=== PATIENT | male | born 1985 | race Caucasian/White ===

== ENCOUNTER 2023-11-23 09:51 | Emergency (ER) | payer BC ==
[2023-11-23] MEDS: Lidocaine 1% with EPINEPHrine 1:100,000 50 ML MDV SUBCUT STA (11:21)
[2023-11-23] MEDS: Bacitracin Oint 1 GM U/D Packet TOP ONE (11:21)
== END 2023-11-23 12:07 | disposition home or self-care (01) ==
LOC: JP.ED 09:51
DX: S71.112A Laceration without foreign body, left thigh, initial encounter (principal); Z88.0 Allergy status to penicillin; Z88.8 Allergy status to other drugs, medicaments and biological substances; X58.XXXA Exposure to other specified factors, initial encounter; Y99.0 Civilian activity done for income or pay; Y92.89 Other specified places as the place of occurrence of the external cause
CPT/HCPCS: 12002; 99282

== ENCOUNTER 2023-12-13 13:11 | Emergency (ER) | payer BC | END 2023-12-13 14:23 | disposition home or self-care (01) | LOC: JP.ED 13:11 | DX: S56.911A Strain of unspecified muscles, fascia and tendons at forearm level, right arm, initial encounter (principal); Z88.1 Allergy status to other antibiotic agents; Z88.2 Allergy status to sulfonamides; X58.XXXA Exposure to other specified factors, initial encounter | CPT/HCPCS: 73090-26-RT; 73090-RT; 99283 ==

== ENCOUNTER 2025-02-10 23:15 | Emergency (ER) | payer BC ==
[2025-02-10] MEDS: Diphtheria,Pertussis(Acell),Tetanus Vaccine 0.5 ML Syringe IM ONE (23:49)
[2025-02-11] MEDS: Bacitracin Oint 1 GM U/D Packet TOP ONE (00:10)
[2025-02-11] MEDS: Lidocaine 1% with EPINEPHrine 1:100,000 20 ML MDV INJECT ONE (00:10)
== END 2025-02-11 01:18 | disposition home or self-care (01) ==
LOC: JP.ED 23:15
DX: S61.212A Laceration without foreign body of right middle finger without damage to nail, initial encounter (principal); Z88.1 Allergy status to other antibiotic agents; Z88.0 Allergy status to penicillin; Z23 Encounter for immunization; W26.0XXA Contact with knife, initial encounter
CPT/HCPCS: 12001; 90471; 90715; 99282; J2004